=== PATIENT | male | born 1985 | race Caucasian/White ===

== ENCOUNTER 2025-07-30 11:56 | Emergency (ER) | payer SELFPAY ==
[2025-07-30 12:33] VITALS: BP 133/93; PULSE 77; RESP 18; TEMP 36.8; O2SAT 95
[2025-07-30 12:54] VITALS: BP 133/93; PULSE 77; RESP 18; TEMP 36.8; O2SAT 95
[2025-07-30 13:32] LABS: Influenza A QL RT-PCR Negative (Negative); Influenza B QL RT-PCR Negative (Negative); RSV RNA, RT-PCR Negative (Negative); SARS-CoV-2 RNA PCR Negative (Negative)
[2025-07-30] MEDS: LIDOCAINE 2% VISC SOLN 15 ML UDC PO (13:37)
[2025-07-30] MEDS: ALBUTEROL SULFATE (*SP) AEROSOL 1 PUFF 2 PUFF INHALATION (14:01)
[2025-07-30 14:02] VITALS: PULSE 98; RESP 18
--- NOTE | 2025-07-30 14:05 | PC.NURSE ---
repiratory in room for inhaler at this time
--- NOTE | 2025-07-30 14:06 | ED_ITS ---
HPI - Dental/Oral General Chief complaint: Dental/Oral Stated complaint: cough, congestion, tooth abscess Time Seen by Provider: 07/30/25 12:54 History of Present Illness HPI Narrative: Last 2 days patient has had congestion and cough, and some swelling to the left upper gums around his tooth that has started going to his cheek. Related Data Allergies Allergy/AdvReac Type Severity Reaction Status Date / Time No Known Allergies Allergy Verified 07/30/25 11:58 Review of Systems Review of Systems: All systems reviewed & are unremarkable except as noted in HPI and below Exam Narrative: EXAMINATION OF ORGAN SYSTEMS/BODY AREAS: Constitutional: Vital signs per nursing GENERAL:[No acute distress, non-toxic appearing.] HEAD: Normal with no signs of head trauma. EYES: EOMI, conjunctiva normal ENT: No trismus, very poor dentition, palpable abscess upper front gums LUNGS: Nonlabored breathing. Wheezing all lung akers HEART: [Regular rate and rhythm] ABD: [Soft], [nontender to palpation] EXT: Normal range of motion SKIN: [No rashes or lesions.] NEURO: [Alert. No gross focal sensory or strength deficits.] PSYCH: Normal affect Course Vital Signs Vital signs: Vital Signs Temperature 98.3 F 07/30/25 12:33 Pulse Rate 77 07/30/25 12:33 Respiratory Rate 18 07/30/25 12:33 Blood Pressure 133/93 H 07/30/25 12:33 Pulse Oximetry 95 07/30/25 12:33 Oxygen Delivery Room Air 07/30/25 12:33 Temperature 98.3 F 07/30/25 12:54 Pulse Rate 98 07/30/25 14:02 Respiratory Rate 18 07/30/25 14:02 Blood Pressure 133/93 H 07/30/25 12:54 Pulse Oximetry 95 07/30/25 12:54 Oxygen Delivery Room Air 07/30/25 12:54 Procedures Abscess I/D oral: Date of Incision: 07/30/25 Time of Incision: 13:55 Side (if applicable): left Local Anesthetic: bupivacaine 0.25% and with epi Amount of anesthesia used (mL): 2 Technique: incised with #11 blade Amount of fluid expressed (mL): 2 Irrigation: Yes Packing used?: none I&D Results: Pus Nerve Block Nerve Block 1: Nerve block date: 12/08/25 Nerve block time: 13:50 Local Anesthetic: bupivacaine 0.25% and with epi Amount of anesthesia used (mL): 2 Side: left Intraoral Nerve Block: superior alveolar Procedure Successful: Yes Patient Tolerated Procedure: well and no complications MDM MDM Narrative Medical decision making narrative: ED COURSE AND MEDICAL DECISION MAKING: This 39 year old patient presents with symptoms most suggestive of viral upper respiratory tract infection. In no respiratory distress but wheezing. He does smoke and I have counseled him to stop smoking. Patient is treated symptomatically with albuterol I did start him on prednisone. Patient also has worsening dental pain and dental decay with palpable abscess. No systemic signs or symptoms. Dental block is performed with good relief of pain and abscesses drained. Antibiotics started. On reevaluation, he is improved and discharged home in stable condition with expectant management. Return precautions were provided. Differential Diagnosis Differential Diagnosis: Acute bronchitis, dental abscess, viral illness Lab Data Labs: Lab Results 07/30/25 Range/Units 12:39 Influenza A (RT-PCR) Negative (Negative) Influenza B (RT-PCR) Negative (Negative) RSV (RT-PCR) Negative (Negative) SARS-CoV-2 RNA (RT-PCR) Negative (Negative) Discharge Plan Discharge Clinical Impression: Dental abscess, Acute bronchitis Patient Disposition: Home Condition: Stable Instructions: Antibiotic Form, Dental Abscess (ED), Acute Bronchitis (ED) Additional Instructions: Please take the antibiotics as prescribed and stop smoking. Follow up with a dentist but if your symptoms worsen, come back to the ER. Patient Language: Guamanian Prescriptions: New prednisone 20 mg tablet 40 mg PO DAILY 4 Days Qty: 8 0RF ibuprofen 600 mg tablet 600 mg PO TID PRN (Reason: fever or pain) Qty: 30 0RF amoxicillin-pot clavulanate 875-125 mg tablet 1 tablet PO Q12H Qty: 14 0RF albuterol sulfate 90 mcg/actuation HFA aerosol inhaler 2 puff inhalation QID PRN (Reason: shortness of breath or wheezing) Qty: 8.5 0RF Follow-up/Referrals: PHYSICIAN NOT ON STAFF,NONSTAFF [Non-Staff]
[2025-07-30 14:36] VITALS: BP 130/92; PULSE 97; RESP 18; O2SAT 95
== END 2025-07-30 14:39 | disposition home or self-care (01) ==
LOC: ANHED 13:07
PROVIDERS: Emergency Provider Emergency Medicine
DX: K04.7 Periapical abscess without sinus (principal); J20.9 Acute bronchitis, unspecified; Z20.822 Contact with and (suspected) exposure to COVID-19
CPT/HCPCS: 41800; 87637; 94640; 94664; 99283; A9270; J7512